=== PATIENT | female | born 1995 | race Caucasian/White ===

== ENCOUNTER 2020-09-01 15:32 | Emergency (ER) | payer MEDICAID ==
[~2020-09-01] VITALS: Ht 165.1 cm; Wt 63.1 kg
[~2020-09-01 15:32] MED LIST: BISM262T9 PO; DIAZ5TAB PO; DICY20TA29 PO; IBUP-1221 PO; MULT-26 PO; POTA20TA89 PO; PROM25TA10 IM; PROM25TA10 PO; THIA100T10 PO; TRIM300C16 PO
--- NOTE | 2020-09-01 16:08 | NUR ---
PT C/O RIGHT LATERAL RIB PAIN X1 HR. DENIES TRAUMA. PT HAS HAD A RUNNY NOSE AND CONGESTION X1 WEEK.
--- NOTE | 2020-09-01 16:15 | NUR ---
PT SITTING UP ON GURNEY, HEAD SLUMPED DOWN TO CHEST, PT SLEEPING. PT RESPONDS WHEN SPOKEN TO. PT CONNECTED TO MONITORING. CALL LIGHT IN REACH.
--- NOTE | 2020-09-01 16:54 | NUR ---
PT WAS SLEEPING AGAIN AND AWAKENED WHEN THIS RN ENTERED ROOM.
--- NOTE | 2020-09-01 16:54 | NUR ---
PT AMBULATED TO RESTROOM WITH STEADY GAIT TO PROVIDE URINE SAMPLE. PT TOOK HER BAG/PURSE WITH HER "TO CHANGE HER TAMPON". PT WAS IN RESTROOM FOR ABOUT 10 MINUTES "TRYING TO PEE". PT DID NOT PROVIDE URINE SAMPLE AT THIS TIME. XRAY COMPLETE. LABS DRAWN. PT PROVIDED WATER. PT STATES SHE DOES NOT USE ANY DRUGS, BUT WHEN RECALL USED ON CLINICAL SCREEN, METH AND HEROIN WERE CLICKED. PT CONNECTED TO ALL MONITORING.
[2020-09-01 16:55] LABS: BASOPHILS % (AUTO) 0 % (0-1); EOSINOPHILS % (AUTO) 0 % (1-7); LYMPHOCYTES % (AUTO) 9 % (22-44); MEAN CORPUSCULAR HEMOGLOBIN 27.5 pg (27.0-34.8); MEAN CORPUSCULAR HGB CONC 33.4 g/dL (32.4-35.8); MEAN PLATELET VOLUME 9.3 fL (7.4-10.4); MONOCYTES % (AUTO) 7 % (2-9); NEUTROPHILS % (AUTO) 84 % (42-75); PLATELET COUNT 159 x10^3/uL (130-400); RED BLOOD COUNT 4.84 x10^6/uL (3.82-5.3); RED CELL DISTRIBUTION WIDTH 14.3 % (9.6-15.2)
[2020-09-01] MEDS ORDERED: DOXYCYCLINE 100 MG in DEXTROSE 5% 250 ML IV SCH (17:00)
[2020-09-01] MEDS ORDERED: SODIUM CHLORIDE 0.9% 1,000ML IVBOLUS ONE (17:00)
[2020-09-01] MEDS ORDERED: SODIUM CHLORIDE FLUSH 10ML SYR IVF ONE (17:00)
[2020-09-01] MEDS ORDERED: CEFTRIAXONE PMX 1GM/50ML 50 ML IV ONE (17:00)
[2020-09-01 17:04] LABS: ALBUMIN 3.4 g/dL (3.4-5.0); ANION GAP 4 mmol/L (5-15); CALCIUM 8.7 mg/dL (8.5-10.1); CHLORIDE 107 mmol/L (98-107)
[2020-09-01 17:09] LABS: ALANINE AMINOTRANSFERASE 19 U/L (12-78); ALKALINE PHOSPHATASE 92 U/L (45-117); BILIRUBIN,TOTAL 0.3 mg/dL (0.2-1.0); CREATININE 0.66 mg/dL (0.55-1.02); TOTAL PROTEIN 7.5 g/dL (6.4-8.2); TROPONIN I < 0.015 ng/mL (0.000-0.045)
--- NOTE | 2020-09-01 17:15 | NUR ---
PT REFUSED TO BE ADMITTED. PT TO SIGN OUT AMA.
[2020-09-01 17:31] LABS: MD SCAN
[2020-09-01 17:40] LABS: RAPID INFLUENZA A Negative (Negative); RAPID INFLUENZA B Negative (Negative)
[2020-09-01] MEDS ORDERED: CEFTRIAXONE PMX 1GM/50ML 50 ML ONE (17:41)
--- NOTE | 2020-09-01 17:46 | NUR ---
PT AGREES TO ABX PRIOR TO LEAVING AMA. IV ABX STARTED PER JUL. 2 SETS BLOOD CX COLLECTED PRIOR TO ADMIN.
[2020-09-01 18:49] VITALS: BP 119/80
--- NOTE | 2020-09-01 19:06 | NUR ---
PT STATES SHE AGREES TO BE ADMITTED. [facility]PA NOTIFIED. PT TO BE ADMITTED.
--- NOTE | 2020-09-01 20:17 | NUR ---
PT SLEEPING ON GURDEYSI. ANNAMARIE. WARM BLANKET PROVIDED.
[2020-09-01] MEDS ORDERED: QUETIAPINE 100MG TABLET ONE (20:54)
[2020-09-01] MEDS ORDERED: SODIUM CHLORIDE 0.9% 1,000 ML IV SCH (21:00)
[2020-09-01] MEDS ORDERED: OXYcodone IR 5MG TABLET PO PRN (21:00)
[2020-09-01] MEDS ORDERED: hydrALAzine 20 MG/ML, 1ML IVPush PRN (21:00)
[2020-09-01] MEDS ORDERED: ONDANSETRON ODT 4 MG PO PRN (21:00)
[2020-09-01] MEDS ORDERED: ACETAMINOPHEN 325 MG TABLET PO PRN (21:00)
[2020-09-01] MEDS ORDERED: PROMETHAZINE 25 MG/ML, 1ML IM PRN (21:00)
[2020-09-01] MEDS ORDERED: ONDANSETRON 2MG/ML, 2ML IVPush PRN (21:00)
[2020-09-01] MEDS ORDERED: POTASSIUM CHLORIDE 20 MEQ TAB.ER.PRT PO ONE (21:00)
--- NOTE | 2020-09-01 21:04 | NUR ---
REPORT GIVEN TO JOYCE LOPEZ. PT RTG TO ROOM [id number]
[2020-09-01 21:13] LABS: FREE T4 (FREE THYROXINE) 1.29 ng/dL (0.76-1.46)
--- NOTE | 2020-09-01 21:14 | NUR ---
PT WAS SMOKING IN RESTROOM. PT STATES SHE IS READY TO LEAVE AND DOES NOT WANT TO BE ADMITTED. PT SIGNED AMA PAPERWORK AND REFUSED TO TAKE DC PAPERS. SWATCH CHECKER AND FLOOR NOTIFIED. PT AMBULATED TO DC WITH STEADY GAIT.
[2020-09-02] MEDS ORDERED: AZITHROMYCIN 500 MG TABLET PO SCH (09:00)
[2020-09-02] MEDS ORDERED: CEFTRIAXONE PMX 1GM/50ML 50 ML IV SCH (17:00)
== END 2020-09-01 21:19 | disposition left against medical advice (07) ==
LOC: ED 18:04 → EDIP 19:57 → UNDOADMIN 19:57 → ED 21:13
DX: J18.9 Pneumonia, unspecified organism (principal); Z20.822 Contact with and (suspected) exposure to COVID-19; D72.829 Elevated white blood cell count, unspecified; A41.9 Sepsis, unspecified organism; R51.9 Headache, unspecified; R07.89 Other chest pain; R06.02 Shortness of breath; R00.0 Tachycardia, unspecified
CPT/HCPCS: 36415; 71045; 80053; 83036; 83605; 83735; 84145; 84439; 84443; 84484; 84703; 85025; 85379; 87040; 87400; 93005; 96365; 96366; 96368; 99285; J0696; J7030; J7060; U0003